=== PATIENT | female | born 2000 | race Caucasian/White ===

== ENCOUNTER → 2020-10-29 | Outpatient (CLI) | payer OTHER ==
--- NOTE | 2020-10-29 11:29 | Diagnostic Imaging Report ---
INDICATION: STRUCK LEFT RIBS ON BAR HIGH COUNTER X 2 DAYS AGO. TECHNIQUE: 3 views left ribs, 10:55 AM. CORRELATION STUDY: None FINDINGS: There is no acute displaced left-sided rib fracture. Left lung is clear. No infiltrate, effusion or pneumothorax. IMPRESSION: 1. Negative for acute displaced left-sided rib fracture. Dictated by: Dictated on workstation # [id number]
== END ==
LOC: RAD 10:20
PROVIDERS: ATTEND Nurse Practitioner Primary Care
DX: R07.81 Pleurodynia (principal)
CPT/HCPCS: 71100